=== PATIENT | female | born 1945 | race Caucasian/White ===

== ENCOUNTER 2024-02-09 13:34 | Emergency (ER) | payer MEDICARE, OTHER, SELFPAY ==
[2024-02-09 13:38] VITALS: BP 154/86
[2024-02-09 15:00] VITALS: BP 129/80
[2024-02-09 15:30] VITALS: BP 137/69
[2024-02-09 15:40] LABS: % Basophils 0.3 % (0-2); % Eosinophils 0.8 % (0-6); % Immature Granulocytes 0.8 % (0-0.5); % Lymphocytes 16.9 % (20.5-51.1); % Monocytes 7.5 % (1.7-9.3); % Neutrophils 73.7 % (42.2-75.2); Absolute Eosinophils 0.1 10^3/uL (0-0.7); Absolute Immature Granulocytes 0.1 10^3/uL (0-0.05); Absolute Lymphocytes 1.1 10^3/uL (1.2-3.4); Absolute Monocytes 0.5 10^3/uL (0.1-0.6); Absolute Neutrophils 4.8 10^3/uL (1.4-6.5); Hematocrit 41.4 % (37.0-47.0); Hemoglobin 14.3 g/dL (12.0-16.0); Mean Corp Hgb Conc. 34.5 g/dL (33.0-37.0); Mean Corpuscular Hgb 30.2 pg (27.0-31.0); Mean Corpuscular Volume 87.3 fL (81.0-99.0); Mean Platelet Volume 9.8 fL (7.4-10.4); Nucleated Red Blood Cells % 0 %; Platelet Count 198 10^3/uL (130-400); Red Blood Cell Count 4.74 10^6/uL (4.20-5.40); Red Cell Dist. Width 12.7 % (11.5-14.5); White Blood Cell Count 6.5 10^3/uL (4.8-10.8)
[2024-02-09 15:59] LABS: ALT (SGPT) 23 U/L (0-35); AST (SGOT) 27 U/L (14-36); Albumin 4.3 g/dl (3.5-5.0); Alkaline Phosphatase 101 U/L (38-126); Blood Urea Nitrogen 19 mg/dl (7-17); Calcium 9.8 mg/dl (8.4-10.2); Carbon Dioxide 28 mmol/L (22-30); Chloride 105 mmol/L (98-107); Glucose 99 mg/dl (70-99); Potassium 4.3 mmol/L (3.5-5.1); Sodium 139 mmol/L (135-145); Total Bilirubin 0.6 mg/dl (0.2-1.3); Total Protein 6.6 g/dl (6.3-8.2); eGFR > 60.00
[2024-02-09 16:00] VITALS: BP 148/94
[2024-02-09 16:02] LABS: Troponin I < 0.012 ng/ml
--- NOTE | 2024-02-09 16:11 | ED.GENMED ---
History of Present Illness
General
Chief Complaint: Breathing Problem
Source: patient
Exam Limitations: none
Time Seen by Provider: 02/09/24 15:02
Nursing documentation reviewed up to this point in time: agreed with
History of Present Illness
History of Present Illness:
Patient to ED with complaint of SOB. States yesterday she noted tightness in left upper arm. Today she began to feel SOB at work. SHe was seen by and advised to come to ED for eval. Currently symptom free.
Past History
Past History
ED Past Medical History: HTN and Hypercholesterolemia
Review of Systems
Review of Systems
Allergies reviewed?: Yes
All Other Systems: ROS reviewed and negative except as documented in HPI and ROS
Constitutional: Reports no symptoms
EENT: Reports no symptoms
Respiratory: Reports trouble breathing
Cardiac: Reports no symptoms
ABD/GI: Reports no symptoms
: Reports no symptoms
Musculoskeletal: Reports no symptoms
Skin: Reports no symptoms
Neurological: Reports no symptoms
Psychiatric: Reports no symptoms
Phy Exam
General Physical Exam
General Presentation: well appearing and no apparent distress
General age: appears stated age
General Skin: warm and dry
General Habitus: normal
General Mental: alert
Cardiovascular Exam
Cardiovascular Exam: regular rate/rhythm and no edema
Pulmonary Exam
Pulmonary Exam: lungs clear and no respiratory distress
Musculoskeletal Exam
Musculoskeletal Exam: full ROM and neuro vasc intact
Skin Exam
Skin Exam: normal color, warm/dry and no rash
Psychiatric Exam
Psychiatric Exam: normal mood/affect
Scores
Heart Failure Risk
Heart Failure Risk Score: Not Applicable
Course
Orders/Labs/Results
Orders:
Orders
02/09/24 13:47
Electrocardiogram (*1) Urgent
Reason for Study: Shortness of Breath
EKG- Treatment ONCE
02/09/24 15:18
CR Chest - 2 Views Urgent
Comment:
Reason For Exam: SOB
02/09/24 15:31
Complete Blood Count/With Diff Urgent
Comprehensive Metabolic Panel Urgent
Troponin I Urgent
Abnormal Lab Results
02/09/24
15:31
Abs Immat Gran (auto) 0.1 H 10^3/uL
(0-0.05)
Absolute Lymphs (auto) 1.1 L 10^3/uL
(1.2-3.4)
Immature Gran % 0.8 H %
(0-0.5)
Lymphocytes % 16.9 L %
(20.5-51.1)
BUN 19 H mg/dl
(7-17)
Creatinine 0.5 L mg/dL
(0.6-1.0)
02/09/24 15:31
02/09/24 15:31
Vital Signs
Initial and Last Documented VS:
Initial Vital Signs
Temp Pulse Resp BP Pulse Ox
98.1 F 79 17 154/86 96
02/09/24 13:38 02/09/24 13:38 02/09/24 13:38 02/09/24 13:38 02/09/24 13:38
Last Documented Vital Signs
Temp Pulse Resp BP Pulse Ox
98.1 F 69 14 148/94 97
02/09/24 13:38 02/09/24 15:47 02/09/24 15:47 02/09/24 16:00 02/09/24 16:06
*Radiology
Radiology exam reviewed: radiology read reviewed
*Pulse Oximetry
Patient hypoxic: no
*EKG
Interpretation: normal
Rate: normal
Rhythm: sinus
*Critical Care Note
Total Time (30-74mins, 75-104mins- exclusive of procedures): Not Applicable
ED Attending Note
-
Portions of this chart may have been created with voice recognition software.� Occasional wrong word or��sound alike� substitutions may have occurred due to the inherent limitations of voice recognition software.
Discharge Plan
Departure
Patient Disposition: Home (Routine Discharge)
Date of Disposition: 02/09/24
Time of Disposition: 16:15
Patient with high blood pressure during this ER visit?: No
Condition: Good
Discharge Problem:
LARA (dyspnea on exertion)
Instructions: Shortness of Breath (Dyspnea) (DC)
Referrals:
Alexys Rush DO [Family Provider] - Follow up in 2-3 days
Interventions
Interventions:
*Risk Screen - Suicide Last Done: 02/09/24 15:05
*General Assessment Last Done: 02/09/24 15:05
*Neglect/Abuse Screening Last Done: 02/09/24 15:05
*ED COVID-19 Vaccine History Last Done: 02/09/24 15:05
ED- Cardiac Assessment Last Done: 02/09/24 15:04
ED- Pulmonary Assessment Last Done: 02/09/24 15:04
Discharge Date and Time
Print Language: LATVIAN
== END 2024-02-09 16:36 | disposition home or self-care (01) ==
LOC: EMR 13:34
PROVIDERS: Nurse Practitioner; EMERGENCY PHYSICIAN Emergency Medicine; FAMILY PHYSICIAN Family Medicine Adult Medicine
DX: R06.09 Other forms of dyspnea (principal); I10 Essential (primary) hypertension; E78.00 Pure hypercholesterolemia, unspecified
CPT/HCPCS: 99283; 71046; 80053; 84484; 85025; 93005

== ENCOUNTER → 2024-05-04 14:37 | Outpatient (REF) | payer MEDICARE, OTHER, SELFPAY | LOC: HWRAD 14:37 | PROVIDERS: ATTENDING PHYSICIAN Surgery; FAMILY PHYSICIAN Physician Assistant Medical; REFERRING PHYSICIAN Nurse Practitioner Women's Health | DX: M85.80 Other specified disorders of bone density and structure, unspecified site (principal); Z12.31 Encounter for screening mammogram for malignant neoplasm of breast; M85.89 Other specified disorders of bone density and structure, multiple sites | CPT/HCPCS: 77063; 77067; 77080 ==

== ENCOUNTER → 2024-08-14 08:45 | Outpatient (REF) | payer MEDICARE, OTHER, SELFPAY | LOC: WDC 08:45 | PROVIDERS: ATTENDING PHYSICIAN Surgery; FAMILY PHYSICIAN Family Medicine Adult Medicine; REFERRING PHYSICIAN Nurse Practitioner Women's Health | DX: R92.2 Inconclusive mammogram (principal) | CPT/HCPCS: 76641 ==